=== PATIENT | female | born 1955 | race Caucasian/White ===

== ENCOUNTER 2017-10-06 06:49 | Day surgery (SDC) | payer OTHER ==
[~2017-10-06] VITALS: Ht 157.5 cm; Wt 62.5 kg
[2017-10-06] MEDS ORDERED: LEVSOD88 (07:27)
[2017-10-06] MEDS ORDERED: [UNRECOGNIZED DRUG - OTHER] (07:28)
[2017-10-06] MEDS ORDERED: FISH OIL 1,0001 EAC1 (07:28)
== END 2017-10-06 08:44 | disposition home or self-care (01) ==
LOC: ORSCSDS 06:49
PROVIDERS: Surgery
PROC: 0DJD8ZZ Inspection of Lower Intestinal Tract, Via Natural or Artificial Opening Endoscopic (ICD-10-PCS; principal; 2017-10-06 08:00)
DX: Z12.11 Encounter for screening for malignant neoplasm of colon (principal); E78.5 Hyperlipidemia, unspecified; E03.9 Hypothyroidism, unspecified; Z79.899 Other long term (current) drug therapy
CPT/HCPCS: J0330; J1980; J2405; J7120

== ENCOUNTER → 2020-09-30 | Outpatient (CLI) | payer OTHER ==
[~2020-09-30] MED LIST: FISH OIL 1,0001 EAC1; LEVSOD88; [UNRECOGNIZED DRUG - OTHER]
== END ==
LOC: LAB SHORT 11:34 → LAB 11:34
DX: D48.5 Neoplasm of uncertain behavior of skin (principal)
CPT/HCPCS: 88305

== ENCOUNTER 2024-10-29 10:02 | Day surgery (SDC) | payer OTHER ==
[~2024-10-29] VITALS: Ht 154.9 cm; Wt 69.3 kg
[~2024-10-29 10:02] MED LIST changes: +Balanced Salt Epinephrine Irrigation Solution 500 mL IR SCH; +Moxifloxacin HCL 0.5 MG/0.1 ML 0.4MLSYR RIGHTEYE SCH; +NS 500 ML IV ONE; +PHENYLEPHRINE\\TROPICAMIDE\\TETRACAINE OPHTHALMIC DILATING SOLN RIGHTEYE PRN; +Povidone-Iodine 450 DROP/30 ML Solution ONE; +Povidone-Iodine 450 DROP/30 ML Solution RIGHTEYE SCH; +Tetracaine HCl/Pf 0.5% Opth Soln 4 ml ONE
[2024-10-29] MEDS ORDERED: NS 500 ML IV ONE (10:20)
[2024-10-29] MEDS ORDERED: ATOR20 PO (10:22)
[2024-10-29] MEDS ORDERED: CETI5 PO (10:23)
[2024-10-29] MEDS ORDERED: DOTTI1 EA18 TOP (10:23)
[2024-10-29] MEDS ORDERED: Midazolam HCl 1MG / ML 2ML Vial ONE (12:20)
[2024-10-29 12:56] VITALS: BP 143/72
== END 2024-10-29 13:16 | disposition home or self-care (01) ==
LOC: ORSCSDS 10:02
PROVIDERS: Student in an Organized Health Care Education/Training Program
PROC: 08RJ3JZ Replacement of Right Lens with Synthetic Substitute, Percutaneous Approach (ICD-10-PCS; principal; 2024-10-29 11:30)
DX: H25.813 Combined forms of age-related cataract, bilateral (principal); H52.201 Unspecified astigmatism, right eye; E78.5 Hyperlipidemia, unspecified; K21.9 Gastro-esophageal reflux disease without esophagitis; Z79.899 Other long term (current) drug therapy
CPT/HCPCS: J2250; J7040; V2632